=== PATIENT | female | born 1965 | race Caucasian/White ===

== ENCOUNTER 2019-08-31 09:02 | Outpatient (REF) | payer SELFPAY ==
[2019-08-31 21:31] LABS: TSH (W/Ref FT4) 2.86 uIU/mL (0.36-3.74)
== END 2019-08-31 09:22 ==
LOC: NCHCN 09:02
PROVIDERS: PCP Family Medicine; Visit Provider Nurse Practitioner Family
DX: E11.9 Type 2 diabetes mellitus without complications (principal); E03.9 Hypothyroidism, unspecified; G47.00 Insomnia, unspecified; H81.13 Benign paroxysmal vertigo, bilateral; E66.9 Obesity, unspecified
CPT/HCPCS: 84443

== ENCOUNTER 2020-12-11 08:06 | Outpatient (REF) | payer OTHER, SELFPAY ==
[2020-12-11 15:31] LABS: TSH 2.94 uIU/mL (0.36-3.74)
[2020-12-11 15:39] LABS: Hemoglobin A1C 8.9 % (<5.7)
== END 2020-12-11 08:07 | disposition home or self-care (01) ==
LOC: NCHCN 08:06
PROVIDERS: PCP Family Medicine; Visit Provider Nurse Practitioner Family
DX: E03.9 Hypothyroidism, unspecified (principal); E11.9 Type 2 diabetes mellitus without complications; E66.9 Obesity, unspecified
CPT/HCPCS: 83036; 84443

== ENCOUNTER 2021-03-01 13:33 | Outpatient (REF) | payer OTHER, SELFPAY ==
[2021-03-01 14:49] LABS: Hemoglobin A1C 8.8 % (<5.7)
[2021-03-01 14:58] LABS: ALT 23 U/L (14-59); AST 10 U/L (15-37); Anion Gap 9.9 mmol/L (3-11); BUN 15 mg/dL (7-18); CO2 28.1 mmol/L (21.0-32.0); CREATININE 0.8 mg/dL (0.55-1.02); Calcium 8.9 mg/dL (8.5-10.1); Calculated LDL 188 mg/dL (<100); Chloride 99 mmol/L (98-107); Cholesterol 286 mg/dL (<200); Glucose 189 mg/dL (74-106); HDL Cholesterol 58 mg/dL (40-60); Potassium 4.3 mmol/L (3.5-5.1); Sodium 137 mmol/L (136-145); Triglyceride 200 mg/dL (<150)
== END 2021-03-01 13:34 | disposition home or self-care (01) ==
LOC: NCHCN 13:33
PROVIDERS: PCP Family Medicine; Visit Provider Nurse Practitioner Family
DX: E11.9 Type 2 diabetes mellitus without complications (principal); E03.9 Hypothyroidism, unspecified; E66.9 Obesity, unspecified
CPT/HCPCS: 80048; 80061; 83036; 84450; 84460

== ENCOUNTER 2021-03-09 12:19 | Outpatient (REF) | payer OTHER, SELFPAY ==
--- NOTE | 2021-03-09 08:30 | PAPFT_PTH ---
PATIENT: Anh Morton LOC: [facility] U#:[id number] AGE/SX: 55/F ROOM: RE03/09/[address]: Nidia Almodovar : 1965 BED: DIS: 03/09/2021 SPEC #: [id number] RECD: 03/09/21 16:46 STATUS: LULÚ REShahab #: [id number] AMANDA: 03/09/21 08:[address]: Nidia Almodovar DEPT: [facility] Cytology RECD BY: Lulu Bueno ENTERED: 03/09/21 16:46 SP TYPE: PAPFT OTHR DR: Maty Sommer Tissues: 1 - CX/ENDOCX FOR PAP SMEARS Procedures: PAP THIN PREP/[facility] Screening HPV DNA PROBE Comments: [id number]
== END 2021-03-09 12:20 | disposition home or self-care (01) ==
LOC: NCHCN 12:19
PROVIDERS: PCP Family Medicine; Visit Provider Nurse Practitioner Family
DX: Z12.4 Encounter for screening for malignant neoplasm of cervix (principal); Z11.51 Encounter for screening for human papillomavirus (HPV)
CPT/HCPCS: 88142; 87624

== ENCOUNTER 2021-12-03 08:20 | Outpatient (REF) | payer SELFPAY ==
[2021-12-03 15:54] LABS: TSH (W/Ref FT4) 4.09 uIU/mL (0.36-3.74)
[2021-12-03 17:03] LABS: FREE T4 1.14 ng/dL (0.76-1.46)
== END 2021-12-03 08:21 | disposition home or self-care (01) ==
LOC: NCHCN 08:20
PROVIDERS: PCP Family Medicine; Visit Provider Nurse Practitioner Family
DX: E11.9 Type 2 diabetes mellitus without complications (principal); E03.9 Hypothyroidism, unspecified
CPT/HCPCS: 84439; 84443

== ENCOUNTER 2023-02-04 20:39 | Outpatient (REF) | payer SELFPAY ==
[2023-02-04 15:00] LABS: TSH (W/Ref FT4) 2.56 uIU/mL (0.36-3.74)
== END 2023-02-04 20:40 | disposition home or self-care (01) ==
LOC: NCHCN 20:39
PROVIDERS: PCP Family Medicine; Visit Provider Nurse Practitioner Family
DX: E03.9 Hypothyroidism, unspecified (principal)
CPT/HCPCS: 84443

== ENCOUNTER 2024-03-03 08:37 | Outpatient (REF) | payer BC, SELFPAY ==
[2024-03-03 14:27] LABS: HCT 41.5 % (36.0-46.0); HGB 13.9 g/dL (11.2-15.7); MCH 29.5 pg (27.0-33.0); MCHC 33.5 % (32.0-36.0); MCV 88 fL (80-95); MPV 10.6 fL (8.0-11.0); Platelet Count 378 10^3/uL (130-400); RBC 4.71 10^6/uL (3.93-5.22); RDW 12.3 % (11.7-14.6); WBC 11.44 10^3/uL (4.4-10.8)
[2024-03-03 14:51] LABS: ALT 14 U/L (14-59); AST 12 U/L (15-37); Albumin 3.9 g/dL (3.4-5.0); Alkaline Phosphatase 84 U/L (46-116); Anion Gap 9.1 mmol/L (3-11); BUN 19 mg/dL (7-18); Bilirubin, Total 0.32 mg/dL (0.2-1.0); CO2 29.9 mmol/L (21.0-32.0); CREATININE 0.8 mg/dL (0.55-1.02); Calcium 9.4 mg/dL (8.5-10.1); Calculated LDL 79 mg/dL (<100); Chloride 103 mmol/L (98-107); Cholesterol 167 mg/dL (<200); Estimated GFR 85.89 (mL/min/1.73m2); Glucose 148 mg/dL (74-106); HDL Cholesterol 59 mg/dL (40-60); Potassium 4.3 mmol/L (3.5-5.1); Sodium 142 mmol/L (136-145); TSH (W/Ref FT4) 3.25 uIU/mL (0.36-3.74); Total Protein 7.3 g/dL (6.4-8.2); Triglyceride 145 mg/dL (<150)
== END 2024-03-03 08:38 | disposition home or self-care (01) ==
LOC: NCHCN 08:37
PROVIDERS: PCP Family Medicine; Visit Provider Nurse Practitioner Family
DX: Z00.00 Encounter for general adult medical examination without abnormal findings (principal); E03.9 Hypothyroidism, unspecified
CPT/HCPCS: 80053; 80061; 85027; 84443